=== PATIENT | female | born 1950 | race African-American/Black ===

== ENCOUNTER 2018-08-07 11:35 | Inpatient (IN) ==
[2018-08-07] MEDS ORDERED: CALCIUM CHLORIDE 1 GM in NS 100 ML IV ONE (12:03)
[2018-08-07 12:23] LABS: BASO# 0.02 X1000 (0.0-0.2); BASO% 0.3 % (0.0-0.8); EOS# 0.14 X1000 (0.0-0.7); EOS% 2.1 % (0.0-10.0); HEMATOCRIT 38.8 % (37.0-47.0); HEMOGLOBIN 13.3 g/dL (12.0-16.0); IMM GRAN# 0.02 X1000 (0.0-0.04); IMM GRAN% 0.3 % (0.0-0.5); LYMPH# 3.38 X1000 (1.2-3.4); LYMPH% 50.3 % (20.5-51.1); MCH 30.6 PG (27-31); MCHC 34.3 g/dL (33-37); MCV 89.4 FL (81-99); MONO# 0.84 X1000 (0.11-0.59); MONO% 12.5 % (1.7-9.3); MPV 8.7 FL (7.4-10.4); NEUT# 2.32 X1000 (1.4-6.5); NEUT% 34.5 % (42.2-75.2); PLT 363 X1000 (130-400); RBC 4.34 XMIL (4.2-5.4); RDW 12.5 % (11.5-14.5); WBC 6.72 X1000 (4.8-10.8)
--- NOTE | 2018-08-07 12:53 | EKG Report ---
Test Performed on : 08/07/2018 11:59:43 AM Test Reason : ER Blood Pressure : / mmHG Vent. Rate : 042 BPM Atrial Rate : 042 BPM P-R Int : 162 ms QRS Dur : 100 ms QT Int : 490 ms P-R-T Axes : 019 019 025 degrees QTc Int : 409 ms Marked sinus bradycardia. with sinus arrhythmia. Nonspecific ST and T wave abnormality Abnormal ECG When compared with ECG of 22-MAY-2017 09:20, Vent. rate has decreased BY 23 BPM Unconfirmed Result
[2018-08-07 13:01] LABS: AGAP 14; ALBUMIN 3.7 g/dL (3.5-5.0); ALKALINE PHOSPHATASE 122 U/L (32-104); BUN 11 mg/dL (8-22); CHLORIDE 103 mmol/L (98-107); COSMO 281; CREATININE 0.9 mg/dL (0.5-0.9); ESTIMATED GFR > 60; GLUCOSE 131 mg/dL (70-104); GOT 14 U/L (10-30); GPT 8 U/L (10-36); POTASSIUM 3.8 mmol/L (3.5-5.1); SODIUM 140 mmol/L (136-145); TCO2 24 mmol/L (25-35); TOTAL PROTEIN 6.8 g/dL (6.3-8.3)
--- NOTE | 2018-08-07 13:39 | PROVIDER DOCUMENTATION ---
This chart was entered by Oscar Boggs Scribe, acting as scribe for Nicole Mares MD. HPI-Syncope/Dizziness - General Chief Complaint: Syncope Stated Complaint: syncope, SOB Time Seen by Provider: 08/07/18 11:40 Source: patient, EMS Allergies/Adverse Reactions: Patient Allergies Allergy/AdvReac Type Severity Reaction Status Date / Time Penicillins Allergy HIVES Verified 05/22/17 08:58 Home Medications: Home Medication List Medication Instructions Recorded Confirmed Last Taken Type Buspirone [Buspar] 1.5 tab PO BID 08/07/18 08/07/18 Unknown History Losartan/Hydrochlorothiazide 1 tab PO DAILY 08/07/18 08/07/18 Unknown History [Losartan-Hctz 100-25 mg Tab] Potassium Chloride E.r. 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 Reports was at a doctors office signing some paperwork and started to feel faint and passed out for 2 minutes. Reports nausea and sob prior to syncope. Denies headache, confusion, ams. Pt is A&Ox3. Prior Episodes: reports: single episode today Onset/Duration: reports: just prior to arrival Timing: reports: gone now Position/Activity at time of episode: reports: standing Recently Seen Here or By Another Healthcare Provider: No Review of Systems - Adult - REVIEW OF SYSTEMS - ADULT Constitutional: denies: chills, fever, fatique Eyes: reports: no symptoms reported Ears, Nose, Mouth & Throat: reports: no symptoms reported Cardiovascular: denies: chest pain, irregular heart rate, orthopnea, syncope Respiratory: reports: shortness of breath. denies: cough, wheezing Gastrointestinal: reports: nausea. denies: abdominal pain, vomiting Genitourinary: reports: no symptoms reported Musculoskeletal: reports: no symptoms reported Integumentary: reports: no symptoms reported Neurological: reports: syncope, other (faint feeling). denies: dizziness/ vertigo, headache/migraines, loss of balance, numbness, paresthesia, seizure, slurred speech Psychiatric: reports: no symptoms reported Endocrine: reports: no symptoms reported Hematologic/Lymphatic: reports: no symptoms reported Allergic/Immunologic: reports: no symptoms reported All Other Systems: Reviewed and Negative Past History - Adult - PAST MEDICAL HISTORY-ADULT Review of Records: reports: Nursing Assessment Review, Medications Reviewed Major Childhood Illnesses: reports: denies history Cardiovascular: reports: HTN Respiratory: reports: denies history Gastrointestinal: reports: denies history Obstetrical/Gynecological: reports: denies history Genitourinary: reports: denies history Musculoskeletal: reports: denies history Neurological: reports: denies history Psychiatric: reports: anxiety Endocrine/Immune: reports: denies history Other Conditions: reports: denies history - PRIOR SURGERIES/PROCEDURES Surgical/Procedure History: reports: none, other (cyst removed from ovary) - IMMUNIZATION STATUS Childhood Immunizations: See Nurse Assessment Flu Vaccine: See Nurse Assessment - FAMILY HISTORY Family History: reviewed, not pertinent - SOCIAL HISTORY Smoking: cigarettes, less than 1 pack/day Provider spent 3-5 mins advising pt. on dangers of tobacco.: Discussed manners to quit use, and f/u contacts for add'l counseling. Substance Use: none/never Physical Exam-General - PHYSICAL EXAM-ADULT Initial Vital Signs Reviewed: Yes (Pt HR on exam was 48) - CONSTITUTIONAL General Appearance: appears well, alert - EYES Eyes: PERRL/EOMI, pink conjunctivae - HEAD, EARS, NOSE, MOUTH & THROAT HENMT: moist mucous membranes, normal ENT inspection, TMs normal, pharynx normal - NECK Neck: non-tender, full range of motion, supple, normal inspection - RESPIRATORY Respiratory: chest non-tender, lungs clear, normal breath sounds, no pleuratic chest pain, no respiratory distress, no accessory muscle use - CARDIOVASCULAR Cardiovascular: normal peripheral pulses, regular rate, rhythm, bradycardia - GASTROINTESTINAL (ABDOMEN) Abdominal Exam: non tender, soft, no organomegaly, no pulsatile mass - MUSCULOSKELETAL Back Exam: normal inspection Extremity: normal range of motion, non-tender - SKIN Integumentary: normal color, normal turgor, warm/dry - NEUROLOGIC Neurologic: 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 as tested, grossly normal, no motor/sensory deficits - PSYCHIATRIC Psych/Mental Status: normal mood/affect, normal thought content, normal thought process, oriented x 3 Progress - PLAN OF CARE/RESULTS Progress/Plan/Lab Results: Vital Signs - 8 hr 08/07/18 11:35 Temperature 97.7 F Pulse Rate 53 L Respiratory Rate 16 Blood Pressure 145/58 Laboratory Results - last 24 hr 08/07/18 08/07/18 08/07/18 11:55 11:55 11:55 WBC RBC Hgb Hct MCV MCH MCHC RDW Std Deviation Plt Count MPV Immature Gran % (Auto) Neut % (Auto) Lymph % (Auto) [place] % (Auto) Eos % (Auto) Baso % (Auto) Immature Gran # (Auto) Neut # (Auto) Lymph # (Auto) [place] # (Auto) Eos # (Auto) Baso # (Auto) Sodium 140 Potassium 3.8 Chloride 103 Carbon Dioxide 24 L Anion Gap 14 BUN 11 Creatinine 0.9 Estimated GFR/1.73 m2 > 60 BUN/Creatinine Ratio 12 Glucose 131 H POC Glucose Calculated Osmolality 281 Calcium 10.0 Total Bilirubin 0.40 AST 14 ALT 8 L Alkaline Phosphatase 122 H Creatine Kinase 53 Troponin T < 0.010 Total Protein 6.8 Albumin 3.7 Globulin 3.0 Albumin/Globulin Ratio 1.0 08/07/18 08/07/18 11:55 11:58 WBC 6.72 RBC 4.34 Hgb 13.3 Hct 38.8 MCV 89.4 MCH 30.6 MCHC 34.3 RDW Std Deviation 12.5 Plt Count 363 MPV 8.7 Immature Gran % (Auto) 0.3 Neut % (Auto) 34.5 L Lymph % (Auto) 50.3 [place] % (Auto) 12.5 H Eos % (Auto) 2.1 Baso % (Auto) 0.3 Immature Gran # (Auto) 0.02 Neut # (Auto) 2.32 Lymph # (Auto) 3.38 [place] # (Auto) 0.84 H Eos # (Auto) 0.14 Baso # (Auto) 0.02 Sodium Potassium Chloride Carbon Dioxide Anion Gap BUN Creatinine Estimated GFR/1.73 m2 BUN/Creatinine Ratio Glucose POC Glucose 135 H Calculated Osmolality Calcium Total Bilirubin AST ALT Alkaline Phosphatase Creatine Kinase Troponin T Total Protein Albumin Globulin Albumin/Globulin Ratio Orders Category Date Time Status CBC WITH ELECTRONIC DIFF [HEME] Stat Lab 08/07/18 11:55 Completed CK PROFILE [SP CHEM] Stat Lab 08/07/18 11:55 Completed COMPREHENSIVE METABOLIC PANEL [CHEM] Stat Lab 08/07/18 11:55 Completed TROPONIN T Stat Lab 08/07/18 11:55 Completed Calcium Chloride 1 gm Med 08/07/18 12:03 Discontinued 0.9% Sodium Chloride Inj [Ns] 100 ml IV NOW EKG [EKG] Routine Ther 08/07/18 Draft Result Diagrams: 08/07/18 11:55 08/07/18 11:55 - REASSESSMENT Reassessment #1 Time Reassessed: 11:59 (Pt laying in bed at HR went down to 39.) Reassessment #2 Time Reassessed: 12:14 (Pt HR went to 34) Reassessment #3 Time Reassessed: 13:11 (Pt heart rate is 48 at this time.) Reassessment #4 Time Reassessed: 13:36 (Pt HR was 37 and went back up to 48.) - EKG 1 Time of EKG reading by physician:: 11:59 EKG Read and Signed by:: Nicole Mares EKG Interpretation (*Must complete 3 of following elements*): Abnormal Rate: 42 Rhythm: sinus donna with sinus arrhythmia Portia: normal QRS: normal ST Wave: non-specific ST changes - CONSULTS/PCP/HOSPITALIST Notification #1 *Consult/PCP/Hospitalist*: Dr. Alvarez Time Discussed: 13:20 Consult Disposition: Admit Departure - Departure Date of Disposition Decision: 08/07/18 Time of Disposition Decision: 13:38 DIAGNOSIS: Syncope, Bradycardia Disposition: ADMITTED INPATIENT 09 Certified Medical Emergency: Emergent Condition: Stable Referrals and Follow-Ups: Favio Mcclelland MD [Primary Care Provider] - - Critical Care Note This patient required my direct & personal management of CC.: No Attestation - Physician/ MELODY Attestation Patient care was provided by Advanced Practice Provider:: No The physician spent face to face time with patient:: Yes Advanced Practice Provider documentation review:: Supervising physician onsite and consulted in the evaluation and care of this patient. The physician did have a face to face encounter with the patient. This chart was documented by the indicated scribe, (Oscar Boggs Scribe) and accurately reflects the services I performed and decisions made by Vishnu hall Mai Huu, MD, as attested by the provider's signature.
[2018-08-07] MEDS ORDERED: NS 1,000 ML IV ONE (13:40)
[2018-08-07] MEDS ORDERED: NICODERM PATCH TD PRN (18:28)
[2018-08-07] MEDS ORDERED: DESYREL PO PRN (18:30)
[2018-08-07] MEDS ORDERED: TYLENOL PO PRN (19:28)
--- NOTE | 2018-08-07 20:45 | HISTORY AND PHYSICAL ---
CHIEF COMPLAINT: Syncope. HISTORY OF PRESENT ILLNESS: This is a 67-year-old female with a history of obstructive sleep apnea, hyperlipidemia, hypertension, anxiety and depression. She presents to the emergency room after having a syncopal episode while filling out paperwork at a walk-in clinic. She reportedly did not respond for about 2 minutes and seizure activity was reported. The patient does have a history of a 1 time seizure in the past secondary to stress. She was not incontinent of stool or urine. There was no vomitus. PAST MEDICAL HISTORY: Hypertension, hyperlipidemia, obstructive sleep apnea, anxiety, depression. PAST SURGICAL HISTORY: Cataract surgery. SOCIAL HISTORY: She denies alcohol or illicit drug use. She smokes about half a pack a day. ALLERGIES: Penicillin which causes hives. HOME MEDICATIONS: A list will be obtained by the nursing staff. Once confirmed for accuracy, we will review and start as is appropriate. REVIEW OF SYSTEMS: Discussed with patient with pertinent positives stated in the HPI. She denied any dizziness, any chest pain, palpitations, any nausea, vomiting, diarrhea, constipation, any black or bloody vomitus or stools, hematuria, dysuria, frequency, urgency. PHYSICAL EXAMINATION: GENERAL: This is a 67-year-old female who is sitting up in the stretcher in no distress. VITAL SIGNS: Blood pressure is 145/58 with a heart rate of 53, respirations 16, temperature is 97.7 with O2 sats 100%. EYES: Pupils are equal, round, react to light. EOMs are intact. Sclerae are anicteric. HENT: Head is normocephalic, atraumatic. Mucous membranes are moist. NECK: Supple, with trachea midline. CARDIOVASCULAR: Regular rate and rhythm. She is bradycardic. S1 and S2 appreciated. She has no lower extremity edema with peripheral pulses palpable x 4 extremities. PULMONARY: Breath sounds are clear with no increased work of breathing noted. CHEST: Chest does rise and fall symmetric with respiration. Chest wall is nontender to palpation. GASTROINTESTINAL: Abdomen is soft, nontender, nondistended with bowel sounds in all 4 quadrants. GENITOURINARY: She has no CVA nor suprapubic tenderness. NEUROLOGIC: She is alert and oriented x 3 with cranial nerves 2-12 grossly intact. LABS: WBC is 6.7, with hemoglobin 13.3, hematocrit 38.8, platelets of 363,000. Sodium is 140, potassium 3.8, BUN 11, creatinine 0.9 with a glucose of 131. EKG revealed sinus bradycardia with a rate of 42 with a QTc of 409. Troponins are negative. ASSESSMENT AND PLAN: 1. Syncope. The patient will be admitted to the hospital, placed on telemetry with neuro checks every 4 hours. We will obtain a carotid Doppler as well as echocardiogram in the morning. 2. Bradycardia. We will hold any rate-controlling medications. Of course, she will be on telemetry and will monitor. Will obtain a TSH. 3. Hypertension. We will identify her home medications and continue as appropriate. 4. Hyperlipidemia. Continue home medications. 5. Tobacco use and abuse. Nicotine patch. I did discuss with the patient the perils of continuing to smoke, offering her materials to aid in cessation. We will continue to trend her troponins and CPK. 6. Will get orthostatic vital signs every 12 hours. 7. Further treatments pending hospital course. Dictated by WASHINGTON Lindsey for Jonah Alvarez MD This chart was documented by, WASHINGTON Lindsey and accurately reflects the services performed, treatment plan and medical decisions as attested by the providers signature Jonah Alvarez MD. cc: WASHINGTON Lindsey MD
[2018-08-07] MEDS: BUSPAR PO SCH ×2 (23:01→23:07)
[2018-08-07 23:26] LABS: BILIRUBIN URINE NEGATIVE (NEGATIVE); BLOOD URINE NEGATIVE (NEGATIVE); CLARITY CLEAR (CLEAR); COLOR YELLOW; GLUCOSE URINE NEGATIVE (NEGATIVE); KETONE URINE NEGATIVE (NEGATIVE); LEUKOCYTES URINE TRACE (NEGATIVE); NITRITE URINE NEGATIVE (NEGATIVE); PROTEIN URINE NEGATIVE (NEGATIVE); UROBILINOGEN URINE NORMAL
[2018-08-07 23:31] LABS: URINE WBC <10 /HPF (<10)
[2018-08-07 23:32] LABS: URINE BACTERIA 4+ /HFP; URINE CRYSTAL CA OXALATE PRESENT /HPF; URINE EPITHELIAL CELLS >10 /HPF (<10); URINE RBC <10 /HPF (<10); URINE SOURCE CLEAN CATCH
--- NOTE | 2018-08-08 03:36 | HISTORY AND PHYSICAL ---
ADDENDUM: The patient was seen and examined by myself. Full note dictated and discussed with the Nurse Practitioner. The patient currently is noted to have a heart rate in the 40s and 50s. She has been taking Cardizem at home. We will admit her to the hospital, hold Cardizem and follow. cc: Jonah Alvarez MD
[2018-08-08] MEDS ORDERED: PRILOSEC PO SCH (07:00)
[2018-08-08 07:21] LABS: HEMOGLOBIN 12.6 g/dL (12.0-16.0); MCHC 33.2 g/dL (33-37); MCV 90.5 FL (81-99); MPV 8.8 FL (7.4-10.4); RBC 4.2 XMIL (4.2-5.4); RDW 12.4 % (11.5-14.5); WBC 6.57 X1000 (4.8-10.8)
[2018-08-08 07:36] LABS: AGAP 7; ALBUMIN 3.2 g/dL (3.5-5.0); ALKALINE PHOSPHATASE 103 U/L (32-104); BUN 11 mg/dL (8-22); CALCIUM 9.5 mg/dL (8.8-10.2); CHLORIDE 106 mmol/L (98-107); CK PROFILE 55 U/L (24-173); COSMO 282; CREATININE 0.7 mg/dL (0.5-0.9); ESTIMATED GFR > 60; GLUCOSE 97 mg/dL (70-104); GOT 11 U/L (10-30); GPT 7 U/L (10-36); POTASSIUM 4.1 mmol/L (3.5-5.1); SODIUM 142 mmol/L (136-145); TCO2 29 mmol/L (25-35); TOTAL PROTEIN 6.4 g/dL (6.3-8.3)
[2018-08-08 08:34] VITALS: BP 183/62
[2018-08-08] MEDS: BUSPAR PO SCH (08:44)
[2018-08-08] MEDS ORDERED: PRAVACHOL PO SCH (09:00)
[2018-08-08] MEDS ORDERED: COZAAR PO SCH (09:00)
[2018-08-08] MEDS ORDERED: ZOLOFT PO SCH (09:00)
--- NOTE | 2018-08-08 09:37 | Extremity Venous Study ---
EXAM: Carotid Ultrasound HISTORY: syncope TECHNIQUE: Carotid Doppler ultrasound COMPARISON: None. FINDINGS: Right: No occlusion or stenosis within the common carotid artery. There is intimal thickening. There is only a small amount of plaque within the bulb. Peak systolic velocity in the internal carotid artery is 77 cm/s. The ICA/CCA ratio is 1.16. Stenosis is less than 40%. There is antegrade flow in the vertebral artery. Left: No occlusion or stenosis within the common carotid artery. There is intimal thickening. A small amount of plaque is present within the bulb. Peak systolic velocity in the internal carotid artery is only 49 cm/s. The ICA/CCA ratio is 0.6. Stenosis is less than 40%. IMPRESSION: Mild stenosis within each proximal internal carotid artery of less than 40%. Electronically signed by Kvng Perla 08/08/2018 9:33 AM
--- NOTE | 2018-08-09 05:44 | DISCHARGE SUMMARY ---
ADMISSION DATE: 08/07/2018 DISCHARGE DATE: 08/08/2018 DISCHARGE DIAGNOSES: 1. Syncope, resolved. 2. Bradycardia resolved. Heart rate in the 80s on discharge. 3. Hypertension. 4. Hyperlipidemia. 5. Chronic tobacco abuse. CONSULTATIONS: None. PROCEDURES: None. BRIEF HOSPITAL COURSE: Patient is a 67-year-old female who presented to the ER after a syncopal episode. She was noted to have bradycardia. It appears as though she may be on Cardizem at home. This was stopped. She was on losartan/hydrochlorothiazide. We admitted her to the hospital, held all rate-controlling medications. We did change her to just losartan. On discharge, she notes that she is feeling better. She is having no syncopal episode. She is able to ambulate without any difficulty, and therefore she will be discharged home. DISPOSITION: Patient will be discharged home. We will continue losartan only. We will follow up outpatient with primary care. TIME SPENT: Greater than 30 minutes was spent in total care. cc: Jonah Alvarez MD
--- NOTE | 2018-08-09 06:14 | DISCHARGE SUMMARY ---
ADMISSION DATE: 08/07/2018 DISCHARGE DATE: 08/08/2018 DIAGNOSES: 1. Syncope. 2. Bradycardia. 3. Hypertension. 4. Hyperlipidemia. 5. Tobacco use and abuse. DIAGNOSTICS: Carotid Doppler bilateral revealed mild stenosis within each proximal internal carotid artery of less than 40%. EKG revealed sinus donna at a rate of [address]-T changes. HOSPITAL COURSE: Ms. Bonilla presented to the emergency room after having a syncopal episode reportedly while filling out paperwork at a walk-in clinic. She was found to be bradycardic and on arrival she was initially bradycardic in the 40s and heart rate stayed 50 to 53 with blood pressures that were ranging in the 170s to 200 over 60s to 70s. She had no further syncopal episodes. She remained bradycardic on telemetry with no ectopy. She was not orthostatic. It was noted that the patient had been taking Cardizem at home. We did hold it. She was not orthostatic. She had no symptoms up walking. She has since been started on losartan 100 mg daily. Carotid Doppler was performed which revealed a mild stenosis of less than 40% within each proximal internal carotid artery. DISCHARGE VITAL SIGNS: Blood pressure is 183/62 with a heart rate of 50, respirations 16, temperature 98.2 degrees with room air sat 98-100%. DISCHARGE PHYSICAL EXAM: Cardiovascular: Regular rate and rhythm. She is bradycardic. S1 and S2 appreciated. Pulmonary: Breath sounds are clear. No increased work of breathing noted. Gastrointestinal: Abdomen is soft, nontender, nondistended, with bowel sounds in all 4 quadrants. Neurologic: She is alert oriented x3. DISCHARGE MEDICATIONS: 1. Losartan 100 mg p.o. daily. 2. Zoloft 200 mg p.o. daily. 3. Pravastatin 20 mg daily. 4. BuSpar 15 mg 1.5 tablets b.i.d. 5. Trazodone 150 mg half a tablet at bedtime. FOLLOWUP: We scheduled an appointment with her primary care physician, Dr. Favio Mcclelland, for August 15 at 10 a.m. She has been instructed to call to be seen sooner return to the ER for any further syncopal episodes, any dizziness, palpitations, for any questions or concerns that she may have. She is being discharged home in stable condition with family members. This is a greater than 30 minute discharge. Dictated by WASHINGTON Lindsey for Jonah Alvarze MD This chart was documented by, WASHINGTON Lindsey and accurately reflects the services performed, treatment plan and medical decisions as attested by the providers signature Jonah Alvarez MD. cc: WASHINGTON Lindsey MD Wayne E. Thomas, MD
--- NOTE | 2018-08-09 08:58 | ECHO REPORT ---
ORDER DATE: 08/07/2018 MEASUREMENTS: 1. Left ventricular end-diastolic diameter 3.7 cm. 2. Systolic diameter 2.3 cm. 3. Septal thickness 1.5 cm. 4. Posterior wall thickness 1.5 cm. 5. Aortic root 3.2 cm. 6. Left atrium 4.4 cm. SUMMARY: 1. Fair quality study. 2. Aortic valve was without evidence of structural abnormality and appears to open adequately on 2-dimensional images. Peak gradient across the aortic valve is less than 10 mmHg. Mitral, tricuspid, and pulmonic valves are without evidence of structural abnormality with mild-to- moderate mitral regurgitation, mild tricuspid regurgitation, and trace pulmonic insufficiency. The estimated systolic PA pressure by Doppler is 40 mmHg suggesting mild pulmonary hypertension. The aortic root is normal in size. 3. Normal left ventricular chamber size with moderate concentric left hypertrophy is demonstrated. Estimated left ejection fraction appears to be at least 65%. No regional wall motion abnormality is evident. Left atrium is mildly enlarged. The right atrium and right ventricle are normal in size with grossly preserved right ventricular systolic function. 4. No pericardial effusion. 5. Appearance of inferior vena cava suggests normal central venous pressure. cc: MD Tali Frank CRNP
== END 2018-08-08 10:50 | disposition home or self-care (01) | DRG 312 ==
LOC: P.MEDSURG 11:35 → P.ED 11:35 → OBSVTOIN 14:54
PROVIDERS: ATTEND Family Medicine
CPT/HCPCS: 80053; 81001; 82550; 82948; 84443; 84484; 85025; 85027; 87088; 93005; 93306; 93880; 94761; 96365; 99285; A9270; J7030; XXXXX